=== PATIENT | male | born 1965 ===

== ENCOUNTER 2022-05-25 11:21 | Outpatient (CLI) | payer SELFPAY ==
[2022-05-25 21:23] LABS: Chloride* 101 mmol/L (96-114); Sodium* 136 mmol/L (135-149)
[2022-05-25 21:24] LABS: Potassium* 4.9 mmol/L (3.6-5.1)
[2022-05-25 21:26] LABS: Creatinine* 0.8 mg/dL (0.5-1.5); Estimated Glomerular Filt Rate 105 ml/min
[2022-05-25 21:27] LABS: Blood Urea Nitrogen* 14 mg/dL (7-30); Calcium* 9.9 mg/dL (8.4-10.6); Carbon Dioxide* 27 mmol/L (20-32); Glucose* 97 mg/dL (60-115)
== END 2022-05-25 11:22 | disposition home or self-care (01) ==
LOC: LKVREF 11:22
PROVIDERS: PCP Emergency Medicine; Visit Provider Emergency Medicine
DX: I10 Essential (primary) hypertension (principal)
CPT/HCPCS: 80048